=== PATIENT | female | born 1965 | race Caucasian/White ===

== ENCOUNTER 2017-07-02 17:32 | Inpatient (IN) ==
[2017-07-02] MEDS ORDERED: ONDANSETRON 4 MG/2 ML VIAL IV STA (18:13)
[2017-07-02] MEDS ORDERED: SODIUM CHLORIDE 0.9% 500 ML IV STA (18:13)
[2017-07-02] MEDS ORDERED: HYDROmorphone 2 MG/1 ML VIAL IV STA (18:13)
[2017-07-02] MEDS ORDERED: ONDANSETRON 4 MG/2 ML VIAL ONE (18:30)
[2017-07-02] MEDS ORDERED: HYDROmorphone 2 MG/1 ML VIAL ONE (18:31)
[2017-07-02 18:37] LABS: Basophils # 0.1 10*3/uL (0.0-0.2); Basophils % 0.9 % (0.0-0.8); Eosinophils # 0.1 10*3/uL (0.0-0.87); Eosinophils % 1.8 % (0.00-10.9); Hematocrit 39.4 VOL% (35.7-47.0); Hemoglobin 13.8 GM/DL (12.0-16.0); Immature Granulocytes % 0.3 %; Immature Granulocytes Absolute 0.02 #; Lymphocytes # 2.1 10*3/uL (1.4-4.0); Lymphocytes % 26.2 % (21.3-54.2); Mean Corpuscular Hemoglobin 33 PG (27-34); Mean Corpuscular Volume 93.1 FL (87-102); Mean Platelet Volume 10.1 FL (9.6-12.0); Monocytes # 0.6 10*3/uL (0.11-0.8); Monocytes % 8.1 % (1.7-12.7); Neutrophils % 62.7 % (38.7-73.9); Platelet Count 235 T/CUMM (130-400); Red Blood Count 4.23 MC/CUMM (3.8-5.5); Red Cell Distribution Width 12.9 % (9.3-17.3); White Blood Count 7.9 T/CUMM (4-12)
[2017-07-02 19:03] LABS: Apearance,Urine CLOUDY (Clear); Bacteria,Urine Occasional /HPF (Few); Bilirubin,Urine Negative (Negative); Blood, Urine Moderate mg/dL (Negative); Glucose,Urine (UA) Negative (Negative); Ketones,Urine Negative (Negative); Mucus,Urine Few /LPF (Occasional); Nitrite,Urine Negative (Negative); Protein,Urine Negative; RBC,Urine 15 /HPF (0-4); Squamous Epithelial Cell,Urine Many /HPF (0-10); Urine Color Yellow (Yellow); Urine Specific Gravity 1.021 (1.001-1.035); Urine Urobilinogen < 2.0 EU/DL (0.2-1.0); WBC,Urine 28 /HPF (0-6)
[2017-07-02 19:04] LABS: Lactic Acid 1.7 MMOL/L (0.4-2.0)
[2017-07-02 19:10] LABS: Barbiturates Screen,Urine Negative (Negative); Benzodiazepines Screen,Urine Negative (Negative); Cannabinoid Screen,Urine Negative (Negative); Opiate Screen,Urine Negative (Negative); Phencyclidine Screen,Urine Negative (Negative)
[2017-07-02 19:14] LABS: Alanine Aminotransferase 17 U/L (13-56); Albumin 3.5 G/DL (3.4-5.0); Alkaline Phosphatase 104 U/L (45-117); Aspartate Amino Transferase 16 U/L (0-37); Bilirubin,Total < 0.39 MG/DL (0.2-1.0); Blood Urea Nitrogen 16 MG/DL (7-18); Calcium 8.7 MG/DL (8.5-10.1); Glucose 170 MG/DL (74-106); Osmolality,Calculated 281.5 MOS/KG (273-304); Potassium 3.7 MMOL/L (3.5-5.1); Sodium 139 MMOL/L (136-145); Total Protein 6.7 G/DL (6.4-8.3)
[2017-07-02] MEDS ORDERED: ONDANSETRON 4 MG/2 ML VIAL IV PRN (22:19)
[2017-07-02] MEDS: HYDROmorphone 2 MG/1 ML VIAL IV PRN (22:29)
[2017-07-02] MEDS: SODIUM CHLORIDE 0.9% 1,000 ML IV SCH (22:29)
[2017-07-03] MEDS: HYDROmorphone 2 MG/1 ML VIAL IV PRN ×2 (07:36→19:17)
[2017-07-03] MEDS ORDERED: LIDOCAINE 1%/EPI INJ 20 ML VIAL ONE (07:41)
[2017-07-03] MEDS ORDERED: ceFAZolin 1,000 MG VIAL ONE (07:41)
[2017-07-03] MEDS ORDERED: BUPIVACAINE 0.25% 50 ML VIAL ONE (07:41)
[2017-07-03] MEDS ORDERED: ROPIVACAINE 0.5% 30 ML VIAL ONE (07:49)
[2017-07-03] MEDS ORDERED: TISSUE ADHESIVE 1 EACH APPLICATOR TOP ONE (09:31)
[2017-07-03] MEDS ORDERED: SEVOFLURANE 1 UNIT/15 MINUTE INH ONE (09:59)
[2017-07-03] MEDS ORDERED: PROPOFOL 200 MG/20 ML VIAL IV ONE (09:59)
[2017-07-03] MEDS ORDERED: MIDAZOLAM 2 MG/2 ML VIAL ONE (09:59)
[2017-07-03] MEDS ORDERED: fentaNYL 100 MCG/2 ML VIAL ONE (10:00)
[2017-07-03] MEDS ORDERED: DEXAMETHASONE 10 MG/1 ML VIAL ONE (10:00)
[2017-07-03] MEDS ORDERED: HYDROmorphone 2 MG/1 ML VIAL IV PRN (10:03)
[2017-07-03] MEDS ORDERED: ONDANSETRON 4 MG/2 ML VIAL IV PRN (10:03)
[2017-07-03] MEDS ORDERED: LACTATED RINGERS 1,000 ML IV SCH (10:30)
[2017-07-03] MEDS: SODIUM CHLORIDE 0.9% 1,000 ML IV SCH ×2 (10:40→19:52)
[2017-07-04] MEDS: HYDROmorphone 2 MG/1 ML VIAL IV PRN ×2 (04:23→10:28)
[2017-07-04] MEDS: SODIUM CHLORIDE 0.9% 1,000 ML IV SCH (06:00)
[2017-07-04] MEDS ORDERED: PANTOPRAZOLE 40 MG TABLET PO SCH (09:00)
[2017-07-04 11:34] VITALS: BP 127/67
== END 2017-07-04 15:35 | disposition home or self-care (01) | DRG 352 ==
LOC: N.ED 17:32 → N.EDINP 21:13 → N.3E 22:00
PROVIDERS: ADMIT Surgery; ATTEND Surgery